=== PATIENT | female | born 1980 | race Caucasian/White ===

== ENCOUNTER 2024-11-17 11:23 | Emergency (ER) | payer OTHER, SELFPAY ==
--- OUTSIDE RECORDS SUMMARY | 2024-11-17 11:25 | XMS_ITS | Clinical Summary ---
Author Organization [facility] Address [address] [place] [address] Care Team Providers Care Automatic Riveting Machine Operator Name Role Phone Edi Leal M.D. Primary Care P citlaly Source Comments Patient records contain information from all sites at [facility]. For routine questions regarding patient records, call [phone] during business hours, M-F 8:00 AM - 5:00 PM Central Time. Record requests for emergency care only can be directed to [phone] at any time.[facility] Allergies No known active allergies Medications * This document contains information received from the source organization and may not represent a complete record from that organization. MULTIVITAMIN ORAL Take 1 tablet by mouth daily. Active B complex-vitamins (BALANCE B-50) tablet Take 1 tablet by mouth daily. Active azithromycin (Zithromax) 500 mg tabletIndication s:Bronchitis Take 1 tablet (500 mg total) by mouth daily. 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 Migraine Headache Variant 10/08/2017 Aneurysm Abdominal Aortic Family History 018 Melanoma Family History 10/08/2017 Resolved Problems Problem Noted Date Diagnosed Date Resolved Date Overweight Body Mass Index 25-29.9 Adult 10/08/2017 10/05/2021 Immunizations Immunization Administration Dates Next Due Influenza TIV (IM) 03/26/2017 Influenza, Injectable, Quadrivalent 03/18/2019,1 Influenza, Unspecified 03/16/2015 SARS-COV-2 (COVID-19) - PFIZ ER (Discontinued)(12 years or older) 03/23/2021,06/07/2020,05/17/2020 influenza vaccine quad (FLUZONE/FLUARIX) (6 months and older)(PF) 03/10/2023,03/09/2021,03/26/2020,2018,03/26/2017,03/16/2016,02/18/2015,1 Family History Medical History Relation Name Comments AA - Aortic aneurysm Father age 45- surgery Hypertension Father Melanoma Father Gout Maternal Grandfather Vitiligo Maternal Grandmother Hypertension Mother Heart failure Paternal Grandmother Other Paternal Grandmother post po alexis Relation Name Status Comments Father Maternal Grandfather Alive Maternal Grandmother Alive Mother Paternal Grandfather Alive Paternal Grandmother (Age 87) Sister Alive Social History Tobacco Use Types Packs/Day Years Used Date Smoking Tobacco: Never Smokeless Tobacco: Never Alcohol Use Standard Drinks/Week Comments Yes 0 (1 standard drink = 0.6 oz pur e alcohol) Social [email or web address] Utilities Answer Date Recorded In the past 12 months has e [employer], gas, oil, or water [employer] threatened to shut off services in your home? No 06/24/2024 Humiliation, Afraid, Rape, and Kick questionnair e Answer Date Recorded Within the last year, have y ou been afraid of your partner or ex-partner? No 07/11/2021 Within the last year, have y ou been humiliated or emotionally abused in other ways by your partner or ex-partner? No Within the last year, have y ou been kicked, hit, slapped, or otherwise physically hurt by your partner or ex-partner? No 07/11/2021 Within the last year, have y ou been raped or forced to have any kind of sexual activity by your partner or ex-partner? No 07/11/2021 Hunger Vital Sign Answer Date Recorded Within the past 12 months, y ou worried that your food would run out before you got the money to buy more. Never true 06/24/19 25 Within the past 12 months, t he food you bought just didn't last and you didn't have money to get more. Never true 06/24/2024 PRAPARE - Transportation Answer Date Re corded In the past 12 months, has l ack of transportation kept you from medical appointments or from getting medications? No 08/2024 In the past 12 months, has l ack of transportation kept you from meetings, work, or from getting things needed for daily living? No 06/24/2024 Housing Stability Answer Date Recorded What is your living situation today? I have a [facility] place to live 06/24/2024 Education Answer Date Recorded What is the highest level of school you have completed or the highest degree you have received? 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 Not on file Not on file Last Filed Vital Signs Vital Sign Reading Time Taken Comments Blood Pressure 110/68 10/06/2021 1:36 PM CDT Pulse 60 10/05/2021 1:04 PM CDT Temperature 36.7 C (98.1 F) 07/07/2021 9:10 AM EXPRESS CLERK Respiratory Rate 18 07/07/2021 9:10 AM EXPRESS CLERK Oxygen Saturation - - Inhaled Oxygen Concentration - - Weight 74.5 kg (164 lb 3.9 oz) 10/06/2021 1:36 P M CDT Height 163.5 cm (5' 4.37) 04/14/2019 9:54 AM CS T Body Mass Index 27.87 04/14/2019 9:54 AM EXPRESS CLERK Plan of Treatment Upcoming Encounters Date Type Department Care Team (Late st Contact Info) Description 11/24/2024 1:45 PM CDT Office Visit Department of Obstetrics and Gynecology in [place], [place] [address] [phone] Karl Monae M.D. [address] [address] Discharge Disposition: Home or Self Care Health Maintenance Due Date Last Done Comments HIV Screening 1981 Hepatitis C Screening 1981 DTaP,Tdap,and Td Vaccines (1 - Tdap) 2000 Hepatitis B Vaccines (1 of 3 - 19+ 3-dose series) 2000 Mammogram 01/16/2023 01/16/2022 COVID-19 Vaccine (4 - season) 2024 03/23/2021, 06/07/2020, 05/17/2020 Influenza Vaccine (#1) 2024 , 03/09/2021, 03/26/2020, Additional history exists Cervical/Vaginal Cancer Screening 04/14/2024 04/14/2019, 04/14/2019, 12/14/2016, Additional history exists Depression Screening (Annual PHQ-2) 05/21/2024 Lipid (Cholesterol) Screening 09/06/2028 09/07/2023, 04/25/2019 HPV Vaccines Aged Out No longer eligi ble based on patient's age to complete this topic IPV Vaccines Aged Out No longer eligi ble based on patient's age to complete this topic Pneumococcal vaccine (0-49 years) Aged Out No longer eligible based on patient's age to complete this topic Procedures Procedure Name Priority Date/Time Associated Diagnosis Comments BI BREAST SCREENING BILATERAL WITH TOMOSYNTHESIS RAD - Routine (most inpatients and all outpatients) 01/16/2022 9:39 AM CDT Screening Mammogram Breast Cancer LIPID PANEL, S Routine 04/25/2019 10:04 AM EXPRESS CLERK General Medical Examination Adult THINPREP SCREEN HPV REFLEX Routine 04/14/2019 10:37 AM EXPRESS CLERK Bleeding Dysfunctional Uterine Gynecological Examination Normal from Last 3 Months or Most Recently Relevant to Health Maintenance Results * BI Breast Screening Bilateral with Tomosynthesis (01/16/2022 9:39 AM CDT) Anatomical Region Laterality Modality Breast, Breast Imaging RST L OS, Breast Imaging ARZ LOS, Breast Imaging FLA LOS Bilateral Mammography 01/16/2022 10:4 4 AM CDT Impressions 01/16/2022 10:45 AM CDT Negative. RECOMMENDATION: Annual Screening Mammogram ASSESSMENT: BI-RADS: 1: Negative. Narrative 01/16/2022 10:45 AM CDT EXAM: BI BREAST SCREENING BILATERAL WITH TOMOSYNTHESIS Current study was evaluated with a Computer Aided Detection (CAD) system. INDICATION: Screening mammogram. COMPARISON: None, this is a baseline screening exam. DENSITY: d. The breast(s) are extremely dense, which lowers the sensitivity of mammography. FINDINGS: No mammographic findings of malignancy. Procedure Note Kobi Mattson M.D. - 01/16/2022 EXAM: BI BREAST SCREENING BILATERAL WITH TOMOSYNTHESIS Current study was evaluated with a Computer Aided Detection (CAD) system. INDICATION: Screening mammogram. COMPARISON: None, this is a baseline screening exam. DENSITY: d. The breast(s) are extremely dense, which lowers thesensitivity of mammography. FINDINGS: No mammographic findings of malignancy. IMPRESSION: Negative. RECOMMENDATION: Annual Screening Mammogram ASSESSMENT: BI-RADS: 1: Negative. Edi Faulkner M.D. [facility] BI PROCEDUR ES Final Result * (ABNORMAL) Lipid Panel (04/25/2019 10:04 AM EXPRESS CLERK) Cholesterol, Total 193 mg/dL 2018 11:40 AM EXPRESS CLERK OWAT Comment: ----REFERENCE VALUE---- Desirable: < 200 Borderline high: 200 - 239 High: > or = 240 Triglycerides 33 mg/dL 04/25/2019 11:40 AM EXPRESS CLERK OWAT Comment: ----REFERENCE VALUE---- Normal: <150 Borderline high: 150-199 High: 200-499 Very high: > or =500 Cholesterol, HDL, S 49(L) >=50 mg/dL 04/25/2019 11:40 AM EXPRESS CLERK OWAT Calculated LDL 137(H) mg/dL 04/25/2019 11:40 AM EXPRESS CLERK OWAT Comment: ----REFERENCE VALUE---- Desirable: <100 Above Desirable: 100-129 Borderline high: 130-159 High: 160-189 Very high: > or =190 Cholesterol, Non-HDL, Calculated 144 mg/dL 04/25/2019 11:40 AM EXPRESS CLERK OWAT Comment: ----REFERENCE VALUE---- Desirable: <130 Above Desirable: 130-159 Borderline high: 160-189 High: 190-219 Very high: > or =220 Blood (Blood, Venous) 04/25/2019 10:04 AM EXPRESS CLERK 04/25/2019 10:29 AM EXPRESS CLERK Matthew Bernard M.D. LAB BLOOD ADD-ON Final Result [facility] [address] [place] [address], [facility] OWAT [facility] [place] [address] [place] [address] * ThinPrep Screen HPV Reflex (04/14/2019 10:37 AM EXPRESS CLERK) 04/22/2019 7:43 AM EXPRESS CLERK [facility] Report electronically signed by AUSTIN Costello(ASCP) I verify that I have examined all relevant slides/materials for the specimen(s) and rendered or confirmed the diagnosis. 04/22/2019 7:43 AM EXPRESS CLERK [facility] Gross Description Received specimen in a ThinPrep vial. 04/22/2019 7:43 AM EXPRESS CLERK [facility] Pap Test Source Cervical/Endocervi helen 04/22/2019 7:43 AM EXPRESS CLERK [facility] Clinical History Irregular cycles 7:43 AM EXPRESS CLERK [facility] Menstrual Status(LMP, PM, ) Irregular cycles 04/22/2019 7:43 AM EXPRESS CLERK [facility] Hormone Therapy/Contracep tives None/Not known 04/22/2019 7:43 AM EXPRESS CLERK [facility] Interpretation Cervical/Endocervi helen (ThinPrep): Satisfactory for Evaluation Endocervical/trans formation zone components absent Negative for Intraepithelial Lesion or Malignancy High Risk HPV: Negative Negative for High Risk HPV by nucleic acid amplification. The following High Risk HPV types were not detected: 16, 18, 31, 33, 35, 39, 45, 51, 52, 56, 58, 59, 66, and 68. 04/22/2019 7:43 AM EXPRESS CLERK [facility] Varies (Cervix/Endocerv ix) 04/14/2019 10:37 AM EXPRESS CLERK 04/15/2019 8:42 AM EXPRESS CLERK us Matthew Bernard M.D. LAB PAP PATHDX ORDERABLES Jaquelin l Result [facility] [address] [place] [address], [facility] HKCY [facility] [address] [place] [address] from Last 3 Months or Most Recently Relevant to Health Maintenance Care Teams Automatic Riveting Machine Operator Relationship Specialty Start Date End Date Edi Leal M.B.B.S., M.D. [address] [place] [id number] PCP - General 04/21/19
--- OUTSIDE RECORDS SUMMARY | 2024-11-17 11:25 | XMS_ITS | Clinical Summary ---
Author Organization [employer] [facility] Address [facility] [place] [address] Care Team Providers Care Relationship Counselor Name Role Phone Krsy Mendez DO Unavailable [phone] Edi Leal Primary Care Provider Allergies No known active allergies Medications propranolol (INDERAL) 40 mg tablet Take 40 mg by mouth 2 times daily. Takes 20mg BID 0 04/30/2017 Active MULTIVITAMIN ORAL Take by mouth. Active propranolol (INDERAL) 20 mg tablet Take 1 tablet by mouth once daily. 90 tablet 3 08/02/2018 11:48 AM CDT 11/02/2017 Active propranolol (INDERAL) 20 mg tablet Take 1 tablet (20 mg total) by mouth daily. Due for follow-up 30 tablet 11/27/2018 12:13 PM CDT 11/27/2018 Active methylPREDNISol one (MEDROL DOSEPAK) 4 mg tabletIndicatio ns:Sciatica, left side Take by mouth as directed on package. 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 20 Tablet 07/08/2021 3:41 PM FOUNTAIN VENDING MECHANIC 07/08/2021 Active COVID-19 antigen test (Flowflex Covid-19 AG Home Test) kit Use as directed on packaging. 8 Kit 07/08/2021 Active azithromycin (ZITHROMAX) 500 mg tablet Take 1 tablet (500 mg total) by mouth daily. 5 Tablet 10/05/2021 2:38 PM CDT 08/23/2021 Active fluconazole (DIFLUCAN) 150 mg tablet Take 1 tablet (150 mg total) by mouth See Admin Instructions. Take one tab now. Repeat in 7 days if symptoms persist. 2 Tablet 10/05/2021 2:38 PM CDT 09/14/2021 Active azithromycin (ZITHROMAX) 250 mg tablet Take 2 tablets (500mg) by mouth daily for 5 days. 10 Tablet 04/12/2022 12:12 PM FOUNTAIN VENDING MECHANIC 04/12/2022 Active phentermine (IONAMIN) 15 mg capsuleIndicati ons:Overweight Take 1 Capsule (15 mg) by mouth once daily before a meal. 30 Capsule 1 08/24/2023 Active Active Problems No known active problems Resolved Problems Problem Noted Date Diagnosed Date Resolved Date Active labor 09/14/2014 05/26/2015 MPP antepartal testing 08/31/201405/26 Overview (09/09/2014): NEXT VISIT ALERTS: [facility] TESTING ONLY Appointments thru 09/16/14 PRIMARY DIAGNOSIS: TWINS - Di/Di TESTING PLANS: WEEKLY BPP/NST - is she getting twice weekly due to cholestasis? LAST GROWTH: 08/26/14 EFW A: 1789, B: 2552 grams, percentile: A: 42, B: 90. - repeat in 4-6 weeks - is this still needed? If so, please schedule. PRIMARY PHYSICIAN: Dr. Reza SPECIALISTS: PLAN: C/S 10/06/14 w/ PMD - did this date change due to cholestasis? Disparate growth in twin gestation 07/29/2014 05/26/2015 Overview (07/29/2014): EFW A: 1025, B: 1321 grams, percentile: A: 26, B: 65. Maximum vertical fluid pocket: A: 5.90, B: 6.68 cm. Twin A: Asymmetric growth indices @ the mean for 26-6/7 weeks/AC @ 30% The umbilical artery Doppler studies were normal. Twin B: Symmetric growth indices @ the mean for 29-0/7 weeks/AC @ 80% The umbilical artery Doppler studies were normal. Multiple with malp resentation with problem in third trimester 07/29/201410/2015 Overview (07/29/2014): presentation is A: Breech, maternal right, B: Variable, maternal left. History of delivery, currently 07/29/2014 05/26/2015 , high-risk, assist ed reproductive technology 07/29/2014 05/26/2015 History of section complicating 06/18/2014 05/26/2015 Twin gestation, dichorionic diamniotic 03/09/2014 05/26/2015 Overview (09/13/2014): 1. 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 REZA FOR DELIVERY EVEN IF NOT [employer] [place] 2. Di/di twin - normal first tri screen; level II sono 20 wks normal; level II sono 07/29/14- disparate growth- A: 30%/ B-80% - repeat level II sono mid August - weekly BPP/NST's at 32 weeks 3. Previous C/S for twins 2011- repeat C/S at 37 weeks on Sunday09/28/[address] Reza 4. Cholestasis- elevated LFT's and bile acids. On ursodiol and in twice weekly testing. Supervision of other normal 02/19/2014 03/09/2014 Overview (02/23/2014): Flu shot 02/19/2014 Ppd positive IUI Immunizations Immunization Administration Dates Next Due Influenza Virus, Unspecified 03/18/2019,03/26/20 17,03/16/2016,03/16/2015 Influenza, IIV3 (Age >=3 years) 03/26/2017 Influenza, IIV4 03/10/2023,,03/26/2020,03/18/2019, 03/26/2017,03/16/2016,02/18/2015,02/19/2014 Family History Medical History Relation Name Comments Hypertension Father Hypertension Mother Relation Name Status Comments Father Alive Maternal Grandfather Alive Maternal Grandmother Alive Mother Alive Paternal Grandfather Alive Paternal Grandmother Sister Alive Social History Tobacco Use Types Packs/Day Years Used Date Smoking Tobacco: Never Smokeless Tobacco: Never Alcohol Use Standard Drinks/Week Comments No 0 (1 standard drink = 0.6 oz pur e alcohol) Social Connections Answer Date Recorded Frequency of Communication with Friends and Fami ly Not on file 06/01/2023 Comments No Sex and Gender Information Value Date Recorded Sex Assigned at Not on file Legal Sex Female 5:11 PM CDT Gender Identity Not on file Sexual Orientation Not on file 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 file Not on file Obstetrics History Para Term AB IAB SAB Ectopic Multiple Livin g Live Births 2 2 0 2 0 0 0 0 2 4 4 Date Outcome GA Total Labor Labor/2nd/3rd Weight Sex Type Anes PTL Chelle A1 A5 Name Clin 2011 36w 0d 2.72 kg (6 lb) F CS-Un spec Livin g Sugey Delivery Location:[place] Comments:breech in lab or 2011 36w 0d 2.72 kg (6 lb) F CS-Un spec Livin g Tess Delivery Location:[facility] Comments:breech; PTL a t 34 wks 2014 35w 0d 2.22 kg (4 lb 14.3 oz) F CS-LT ranv Livin g 6 7 [facility] Delivery Location:[facility] Comments:breech; PTL 2014 35w 0d 2.83 kg (6 lb 3.8 oz) M CS-LT ranv Livin g 8 8 [facility] Delivery Location:[facility] Comments:Breech; PTL Last Filed Vital Signs Vital Sign Reading Time Taken Comments Blood Pressure 125/81 07/16/2023 12:45 PM FOUNTAIN VENDING MECHANIC Pulse 67 07/16/2023 12:45 PM FOUNTAIN VENDING MECHANIC Temperature 36.3 C (97.4 F) 10/17/2017 10:02 AM CDT Respiratory Rate 18 10/17/2017 10:02 AM CDT Oxygen Saturation 99% 10/17/2017 11:55 AM CDT Inhaled Oxygen Concentration - - Weight 75.1 kg (165 lb 9.1 oz) 07/16/2023 12:45 PM FOUNTAIN VENDING MECHANIC Height 165.1 cm (5' 5) 06/01/2023 8:56 AM FOUNTAIN VENDING MECHANIC Body Mass Index 27.55 06/01/2023 8:56 AM FOUNTAIN VENDING MECHANIC Plan of Treatment Health Maintenance Due Date Last Done Comments Tdap 1992 Hepatitis C screening for age 18-79 1999 Hepatitis B series for 19+ (1 of 3 - 19+ 3-dose series) 2000 Tetanus booster 2001 Depression screening for age 12+ 06/22/2016 06/22/2015 Pap test for age 21-65 12/14/2017 7, 12/14/2016, 05/26/2015, Additional history exists COVID-19 vaccine series ( season) 2024 03/23/2021, 06/07/2020, 05/17/2020 BMI (ht and wt on same day) for age 18+ 06/01/2024 06/01/2023, 04/30/2017, 01/31/2016, Additional history exists Influenza Vaccine (Season Ended) 2025 03/10/2023, 03/09/2021, 03/26/2020, Additional history exists HIV for age 15-65 Completed 02/19/2014 Pneumococcal series for age 6-49 Aged Out No longer eligible based on patient's age to complete this topic Procedures Procedure Name Priority Date/Time Associated Diagnosis Comments DIRECTOR FOOD SAFETY THIN PREP PAP SCREEN IMAGED Routine 12/14/2016 11:57 AM CDT ANTI HIV 1/2 Routine 02/19/2014 9:05 AM CDT Supervision of other normal (HC) from Last 3 Months or Most Recently Relevant to Health Maintenance Results * DIRECTOR FOOD SAFETY THIN PREP PAP SCREEN IMAGED (12/14/2016 11:57 AM CDT) Case Report Gynecologic Cytology Report Case: [id number] Authorizing Provider: Damari Bañuelos MD Collected: 12/14/2016 1157 First Screen: Kvng Ruiz Received: 12/16/2016 1158 Rescreen: Ca Chua Specimen: DIRECTOR FOOD SAFETY ThinPrep Vial Screening, Cervical/Vaginal 12/25/2016 12:55 PM CDT [facility] INTERPRETATION/ RESULT NEGATIVE FOR INTRAEPITHELIAL LESION OR MALIGNANCY (NIL) (none) 12/25/2016 12:55 PM CDT [facility]AL LAB[facility] at 1255 CDT SPECIMEN ADEQUACY Satisfactory for evaluation Endocervical component present 12/25/2016 12:55 PM CDT [facility] HPV REQUEST HPV and PAP 12/25/2016 12:55 PM CDT [facility] ENTRAL LAB[facility] Date of LMP 11/23/2016 12/25/2016 12:55 PM CDT [facility] [employer] LABORATORY-C ENTRAL LABORATORY Last Pap Date 12/25/2016 12:55 PM CDT [facility] [employer] LAB[facility]ATORY ENTRAL LABORATORY Comment:2014 Last Pap Result 12:55 PM CDT [facility] [employer] [facility] ENTRAL LABORATORY Comment:insufficient Automated Review Successful 12/25/2016 12:55 PM CDT [facility] [employer] [facility]ORY[facility] ENTRAL LABORATORY Comment:Specimen processed s uccessfully by automated computer programmer chief device, ThinPrep Imaging System, [employer] ANCILLARY TESTING DIRECTOR FOOD SAFETY HPV Ordered, Please see separate report 12/25/2016 12:55 PM CDT [facility] [employer] [facility] ENTRAL LABORATORY Note The pap test is a screening technique, not a diagnostic procedure. It is used primarily to screen for squamous cancers and precursor lesions. Published studies have shown that it is subject to both false negative and false positive results. The pap test should not be used as the sole means to diagnose or exclude pre-malignant and malignant lesions. Interpreted at [facility] ([facility], [facility], [facility], [facility], [facility], [facility], [facility]) 12/25/2016 12:55 PM CDT [facility] [employer] [facility] Other (Cervical/Vagina l) 12/14/2016 11:57 AM CDT 12/16/2016 11:58 AM CDT Damari Bañuelos MD PATHOLOGY/CYTOLOGY Final Result [facility] [address] [place] [address], * ANTI HIV 1/2 (02/19/2014 9:05 AM CDT) HIV-1/HIV-2 ANTIBODY Non-Reacti ve Non-Reacti ve 02/19/2014 4:27 PM CDT [facility] TR[facility] LABORATORY Blood specimen (specimen) BLOOD SPECIMEN / Unknown Venipuncture / Unknown 02/19/2014 9:05 AM CDT 02/19/2014 9:05 AM CDT Narrative [facility] - 02/19/2014 4:27 PM CDT HIV-1 p24 and HIV-1/HIV-2 Ab not detected us Ezequiel Herrera MD SEND OUTS Final Result [facility] [address] [place] [address], from Last 3 Months or Most Recently Relevant to Health Maintenance Insurance INDIVIDUAL [employer] FAMILY PLANS Advance Directives * Full Code (Latest Code Status on File) Date Activated Date Inactivated Comments 09/14/2014 4:40 AM 09/17/2014 1:09 PM * Full Code Date Activated Date Inactivated Comments 09/14/2014 2:16 AM 09/14/2014 4:40 AM * Full Code Date Activated Date Inactivated Comments 09/13/2014 11:36 PM 09/14/2014 2:16 AM * Full Code Date Activated Date Inactivated Comments 09/06/2014 11:13 AM 09/10/2014 2:40 AM * Full Code Date Activated Date Inactivated Comments 09/06/2014 8:41 AM 09/06/2014 11:13 AM Care Teams Relationship Counselor Relationship Specialty Start Date End Date Edi Leal MBBS [address] [place] [address] PCP - General Family Practice 04/24/20 Krys Mendez DO [address] [place] [address] Internal Medicine 04/30/17
[2024-11-17 11:36] VITALS: BP 137/79; PULSE 63; RESP 20; TEMP 36.5; O2SAT 99; BMI 25.5
--- NOTE | 2024-11-17 11:43 | ED_ITS ---
HPI - Abdominal Pain General Time Seen by Provider: 11:43 Date Seen: 11/17/24 Chief Complaint: Abdominal Pain Stated Complaint: Abdominal pain Time Seen by Provider: 11/17/24 11:39 Source: patient and RN notes reviewed Mode of arrival: ambulatory Limitations: no limitations History of Present Illness HPI narrative: This 44-year-old female is coming into the ER with increasing pelvic pain, right low back pain. 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 She had had a UTI a few months back and was sensitive to doxycycline on culture. She started doxycycline but is now starting to feel right low back pain, nausea, bloated, increased pelvic pain. She has had 2 C sections with 2 sets of twins. Her has had a vasectomy. Her periods are still regular but they are becoming heavier, have your bleeding. She has not had any fevers but has had some chills. She has not noted any changes in bowel habits. She has had no other surgeries. She has noted sediment in her urine before but no documented history of kidney stones. She is coming in as she is just feeling worse, worried about things like ascending infection with pyelonephritis, potential ovarian cyst. We did discuss doing test as there can be failure rates with vasectomy. She was trying to work, just does not feel well enough to do so. She did come into the ER. She has been using ibuprofen. She declines any need for pain management at this time. She is , stable monogamous relationship. No vaginal discharge noted. Related Data Previous Rx's ?Medication ?Instructions ?Recorded doxycycline monohydrate 100 mg 100 mg PO BID #8 caps 0 11/17/24 capsule phenazopyridine 200 mg tablet 200 mg PO TID PRN pain # 10 tabs 11/17/24 (Pyridium) Allergies Allergy/AdvReac Type Severity Reaction Status Date / Time Opioids - Morphine Analogues Allergy Unknown Verified 11/17/24 11:40 Review of Systems Status of ROS Reports: 6 or more systems reviewed and unremarkable except as noted in History and below PFSH PFS Social History Smoking Status: Never smoker How often do you have a drink containing alcohol: never How often do you have six or more drinks on one occasion: Never AUDIT-C Alcohol total score: 0 Non-prescribed substance use: denies use Exam Const: Vital Signs, click to edit/add: Vital Signs - 24 hr 11/17/24 11:36 Temperature 97.7 F Pulse Rate [Pulse Oximeter] 63 Respiratory Rate 20 Blood Pressure [Ri ght Upper Arm] 137/79 Pulse Oximetry 99 Oxygen Delivery Me thod Room Air This 44-year-old female is alert, interactive, no apparent distress. She is very pleasant and well kept. Sclera clear, conjugate gaze. She is able to speak in complete sentences, speech is normal. Lungs are clear, good air entry, no tachypnea accessory muscle use. Neck slender. CV regular rate and rhythm, no murmur, normal S1-S2, no S3-S4. She has no CVA tenderness. She points to pain in her right low back area but there is nothing reproducible at this time. Abdomen is with some mild generalized discomfort but no rebound or guarding, no appreciable organomegaly. Pelvic exam deferred at this point. Documenting provider has reviewed patient's vital signs: yes Course Course ED Course: We will start with noncontrast CT imaging to definitely rule out kidney stone pathology. This may remain not see any ascending urinary infection without contrast. She understands we may need to do a subsequent exam with contrast if needed. We may need to consider doing pelvic ultrasonography. Will get baseline labs. She will let us know if she changes her mind on pain or nausea management. Reevaluation(s) Time of Reevaluation #1: 12:51 Reevaluation #1: Have reviewed patient's CT and labs with her. She is actually feeling more pelvic discomfort, was going to request the Toradol. She believes her last UTI was mycoplasma hominis. It was sensitive to doxycycline. Did discuss that mycoplasma species are potential etiologies in pelvic inflammatory disease. She in I discussed further imaging with pelvic ultrasound which she would like to do. Will order 15 mg IV Toradol. We will be culturing her urine. She has been on 5 days of doxycycline which is typical treatment for PID minus Rocephin. At this time, will look at pelvic ultrasonography to see if there is any ab normality there, CT imaging did not show any pathology but this was a noncontrast CT. Time of Reevaluation #2: 13:05 Reevaluation #2: Patient was incorrect in the organism, was ureaplasma parvum. This effectively can cause urethritis, vaginitis, cervicitis, PID. Time of Reevaluation #3: 13:56 Reevaluation #3: Did do the pelvic exam. External genitalia normal. Vaginal mucosa is normal, mild amount of nonodorous normal appearing vaginal discharge. Cervix appeared normal. Endocervical specimens were obtained for GC and chlamydia as well as mycoplasma/ureaplasma. Patient had some discomfort with the pelvic exam but not excessive. Awaiting pelvic ultrasound results. Additional Reevaluation(s): 2:10 p.m.: Did review ultrasound report with patient. She probably has an endocervical polyp, reviewed with her that I did not see this but there was some discharge up along the cervix and was just collecting swabs. We did discuss that this certainly sometimes can just be removed in twisted off by OB Gyne. She will follow-up with OB Gyne. We will do Rocephin. She needs more tablets to completed 2 week course of doxycycline. We did discuss that the Ureaplasma can cause urethritis. Will also send in peridium for symptom control. She declines any medications such as Toradol, declined anything stronger. We will contact her with pending test results, of the Ureaplasma and mycoplasma are send outs, she understands it could be 5-7 days before we have these back. Consultations Consultation #1: Did converse with Dr. Bañuelos regarding this patient. She does think we should do these cervical cultures, consider PID. She admittedly is not excessively familiar with Ureaplasma being a urinary pathogen. Did review with her that urethritis can be a possibility. Time: 13:19 Vital Signs Vital signs: Initial Vital Signs Temperature 97.7 F 11/17/24 11:36 Temperature Source Oral 11/17/24 11:36 Pulse Rate 63 11/17/24 11:36 Respiratory Rate 20 11/17/24 11:36 Blood Pressure 137/79 11/17/24 11:36 Blood Pressure Mean 98 11/17/24 11:36 Blood Pressure Position Sitting 11/17/24 11:36 Pulse Oximetry 99 11/17/24 11:36 Oxygen Delivery Method Room Air 11/17/24 11:36 Vital Signs Temperature 97.7 F 11/17/24 11:36 Pulse Rate 63 11/17/24 11:36 Respiratory Rate 20 11/17/24 11:36 Blood Pressure 137/79 11/17/24 11:36 Pulse Oximetry 99 11/17/24 11:36 Oxygen Delivery Method Room Air 11/17/24 11:36 Temperature 97.7 F 11/17/24 11:36 Pulse Rate 63 11/17/24 11:36 Respiratory Rate 20 11/17/24 11:36 Blood Pressure 137/79 11/17/24 11:36 Pulse Oximetry 99 11/17/24 11:36 Oxygen Delivery Method Room Air 11/17/24 11:36 Medications Administered Medications: Discontinued Medications Generic Name Dose Route Start Last Admin Trade Name Julienne PRN Reason Stop Dose Admin Ceftriaxone Sodium 500 mg/ 100 mls @ 200 mls/hr 11/17/24 14:11 11/17/24 15:00 Sodium Chloride IVPB 11/17/24 14:12 Infused ONCE ONE Infusion Ketorolac Tromethamine 15 mg 11/17/24 12:56 11/17/24 13:32 Ketorolac 15 Mg/Ml Inj IVP 11/17/24 12:57 15 mg ONCE ONE Administration MDM - Abdominal Pain Lab Data Attestation: I reviewed the patient's lab results. Labs: Lab Results 11/17/24 11/17/24 11/17/24 Range/Units 11:45 12:01 12:05 WBC 7.65 (4.50-11.00) K/uL RBC 4.35 (4.00-5.20) m/uL Hgb 12.3 (12.0-16.0) gm/dL Hct 37.2 (33.0-51.0) % MCV 86 (80-100) fL MCH 28 (26-34) pg MCHC 33 (32-36) gm/dL RDW Coeff of Jaiden 12.7 (11.5-15.5) % Plt Count 364 (140-440) K/uL Neut % (Auto) 58.9 (42.0-72.0) % Lymph % (Auto) 28.6 (20-44) % [place] % (Auto) 6.5 (0.0-11.0) % Eos % (Auto) 5.6 (0.0-7.0) % Baso % (Auto) 0.4 (0.0-3.0) % Neut # (Auto) 4.50 (1.7-7.0) K/uL Lymph # (Auto) 2.19 (0.90-2.90) K/uL [place] # (Auto) 0.50 (0.00-0.90) K/UL Eos # (Auto) 0.43 (0.00-0.50) K/uL Baso # (Auto) 0.03 (0.00-0.30) K/uL Abs Immat Gran (auto) 0.00 (0.00-0.30) K/uL Imm/Tot Granulo (auto) 0.0 % Sodium 137 (135-149) mmol/L Potassium 3.8 (3.6-5.1) mmol/L Chloride 102 (96-114) mmol/L Carbon Dioxide 28 (20-32) mmol/L Anion Gap 7 (7-15) mEq/L BUN 21 (5-24) mg/dL Creatinine 0.8 (0.5-1.5) mg/dL Estimated Creat Clear 81.59 Estimated GFR 94 ml/min Glucose 94 (60-115) mg/dL Lactate 0.7 (0.5-1.9) mmol/L Calcium 9.0 (8.4-10.6) mg/dL Total Bilirubin 0.4 (0.1-1.5) mg/dL AST 28 (12-35) U/L ALT 19 (4-35) U/L Alkaline Phosphatase 45 (40-150) U/L C-Reactive Protein < 0.5 L (0.5-1.0) mg/dL Total Protein 7.4 (6.0-8.3) g/dL Albumin 4.2 (3.3-5.0) g/dL Urine Color Yellow (Yellow) Urine Appearance Clear (Clear) Urine pH 5.0 (5.0-8.5) Ur Specific Drain 1.015 (1.000-1.030) Urine Protein Negative (Negative) Urine Glucose (UA) Negative (Negative) Urine Ketones Negative (Negative) Urine Blood Trace-lysed A (Negative) Urine Nitrite Negative (Negative) Urine Bilirubin Negative (Negative) Urine Urobilinogen 0.2 (0.2-1.0) Ur Leukocyte Esterase Negative (Negative) Urine RBC 0-2 (0-2) Urine WBC 0-2 (0-5) Ur Squamous Epith Cells Few (None-Few) Urine Bacteria None (None) Urine HCG, Qual Negative (Negative) C.trachomatis Ampl DNA (No Detected) N.gonorrhoeae Ampl DNA (No Detected) Lab Acknowledgement Test Added 11/17/24 Range/Units 13:55 WBC (4.50-11.00) K/uL RBC (4.00-5.20) m/uL Hgb (12.0-16.0) gm/dL Hct (33.0-51.0) % MCV (80-100) fL MCH (26-34) pg MCHC (32-36) gm/dL RDW Coeff of [place] (11.5-15.5) % Plt Count (140-440) K/uL Neut % (Auto) (42.0-72.0) % Lymph % (Auto) (20-44) % [place] % (Auto) (0.0-11.0) % Eos % (Auto) (0.0-7.0) % Baso % (Auto) (0.0-3.0) % Neut # (Auto) (1.7-7.0) K/uL Lymph # (Auto) (0.90-2.90) K/uL [place] # (Auto) (0.00-0.90) K/UL Eos # (Auto) (0.00-0.50) K/uL Baso # (Auto) (0.00-0.30) K/uL Abs Immat Gran (auto) (0.00-0.30) K/uL Imm/Tot Granulo (auto) % Sodium (135-149) mmol/L Potassium (3.6-5.1) mmol/L Chloride (96-114) mmol/L Carbon Dioxide (20-32) mmol/L Anion Gap (7-15) mEq/L BUN (5-24) mg/dL Creatinine (0.5-1.5) mg/dL Estimated Creat Clear Estimated GFR ml/min Glucose (60-115) mg/dL Lactate (0.5-1.9) mmol/L Calcium (8.4-10.6) mg/dL Total Bilirubin (0.1-1.5) mg/dL AST (12-35) U/L ALT (4-35) U/L Alkaline Phosphatase (40-150) U/L C-Reactive Protein (0.5-1.0) mg/dL Total Protein (6.0-8.3) g/dL Albumin (3.3-5.0) g/dL Urine Color (Yellow) Urine Appearance (Clear) Urine pH (5.0-8.5) Ur Specific Drain (1.000-1.030) Urine Protein (Negative) Urine Glucose (UA) (Negative) Urine Ketones (Negative) Urine Blood (Negative) Urine Nitrite (Negative) Urine Bilirubin (Negative) Urine Urobilinogen (0.2-1.0) Ur Leukocyte Esterase (Negative) Urine RBC (0-2) Urine WBC (0-5) Ur Squamous Epith Cells (None-Few) Urine Bacteria (None) Urine HCG, Qual (Negative) C.trachomatis Ampl DNA NOT DETECTED (No Detected) N.gonorrhoeae Ampl DNA NOT DETECTED (No Detected) Lab Acknowledgement Imaging Data CT scan - abdomen: Attestation: I have reviewed the pertinent imaging results. Radiologist's impression: Patient: TRENT ANNE Facility:?[facility] Patient ID:?[id number] Site Patient ID:?[id number]. Site :?[id number] Study:?CT-Abdomen/Pelvis w/o-11/17/2024 12:11:11 PM Ordering Physician:Gelacio Curry Final Report: Indication: Dysuria, Right LBP r/o stones Technique: Noncontrast CT of the abdomen and pelvis was obtained. Please note that all CT scans at this facility use dose modulation, iterative reconstruction, and/or weight-based dosing when appropriate to reduce radiation dose to as low as reasonably achievable. Comparison: None. Findings: Lower thorax: Normal. Liver and biliary tree: Normal noncontrast appearance. Gallbladder: Normal. Spleen: Normal noncontrast appearance. Pancreas: Normal noncontrast appearance. Adrenal glands: Normal noncontrast appearance. Kidneys and ureters: No hydronephrosis or obstructing renal calculi. Gastrointestinal tract: Moderate stool burden is seen throughout the colon. No evidence of acute appendicitis. No evidence of bowel obstruction. Peritoneal cavity: Normal. Bladder: Normal. Pelvic organs: Normal. Vasculature: Normal noncontrast appearance. Lymph nodes: Normal. Abdominal wall: Normal. Musculoskeletal: Normal. Impression: 1. No hydronephrosis or obstructing renal calculi. 2. Moderate stool burden is seen throughout the colon. Please note that all CT scans at this facility use dose modulation, iterative reconstruction, and/or weight-based dosing when appropriate to reduce radiation dose to as low as reasonably achievable. Dictated by Rober Brown MD @ 11/17/2024 12:31:05 PM (Electronic Signature) US pelvis: Attestation: I have reviewed the pertinent imaging results. Radiologist's impression: Patient: TRENT ANNE Facility:?[facility] Patient ID:?[id number] Site Patient ID:?[id number]. Site :?1980 Study:?US-Pelvis Transabdominal and Transvaginal-11/17/2024 1:48:47 PM Ordering Physician:Gelacio Curry Final Report: INDICATION: Pelvic pain. COMPARISON: Same day CT of the abdomen and pelvis. TECHNIQUE: Sonographic evaluation of the pelvis was performed utilizing sears-scale and color/spectral Doppler imaging techniques. Transabdominal images were obtained. Transvaginal images were obtained to improve assessment of the adnexa and endometrium. FINDINGS: The uterus is anteverted and retroflexed. The uterus measures 10.9 x 5.8 x 6.2 centimeters. The endometrial stripe measures 10 mm. Trace fluid within the endometrial cavity at the lower uterine segment and in the cervical canal. There is a 5 x 4 x 3 millimeter polypoid slightly echogenic lesion within the cervical canal. The right ovary measures 3.5 x 1.5 x 2.4 cm. Vascular flow is detected in the right ovary. No suspicious right ovarian mass is identified. The left ovary measures 3.6 x 1.8 x 2.2 cm. Vascular flow is detected in the le ft ovary. No suspicious left ovarian mass is identified. No free fluid is detected in the pelvis. IMPRESSION: 1. Trace fluid within the endometrial cavity at the lower uterine segment and in the cervical canal. 2. There is a 5 millimeter nonspecific polypoid lesion within the cervical canal. Dictated by Getachew Kidd MD @ 11/17/2024 2:00:16 PM (Electronic Signature) Discharge Plan Discharge Clinical Impression: Pelvic pain Patient Disposition: Home, Self-Care Condition: Stable Instructions: Pelvic Pain (ED) Additional Instructions: Complete the doxycycline 14 day course that we discussed. Can use Tylenol, ibuprofen [id number] as needed per bottle directions. Did send in Pyridium to help easy urinary symptoms. Please get scheduled to follow-up with OBGYN. In the meantime, if you are worsening, have increasing pain, develops fevers or chills or vomiting with abdominal pain/pelvic pain, do recommend re- evaluation. Likewise, if you are worsening despite outlined treatment, have new or further concerns, do recommend re-evaluation. Activity Level: Activity as Tolerated Prescriptions: New doxycycline monohydrate 100 mg capsule 100 mg PO BID Qty: 8 0RF phenazopyridine [Pyridium] 200 mg tablet 200 mg PO TID PRN (Reason: pain) Qty: 10 0RF Follow Up/Referrals: Provider,Not a Local [Primary Care Provider, Family Practice] Stand Alone Forms: [employer] Info Instructions
--- NOTE | 2024-11-17 11:56 | CRLHL7_ITS ---
For Patients: As a result of the Century Cures Act, medical imaging exams and procedure reports are released immediately into your electronic medical record. You may view this report before your referring provider. If you have questions, please contact your health care provider. Indication: Dysuria, Right LBP r/o stones Technique: Noncontrast CT of the abdomen and pelvis was obtained. Please note that all CT scans at this facility use dose modulation, iterative reconstruction, and/or weight-based dosing when appropriate to reduce radiation dose to as low as reasonably achievable. Comparison: None. Findings: Lower thorax: Normal. Liver and biliary tree: Normal noncontrast appearance. Gallbladder: Normal. Spleen: Normal noncontrast appearance. Pancreas: Normal noncontrast appearance. Adrenal glands: Normal noncontrast appearance. Kidneys and ureters: No hydronephrosis or obstructing renal calculi. Gastrointestinal tract: Moderate stool burden is seen throughout the colon. No evidence of acute appendicitis. No evidence of bowel obstruction. Peritoneal cavity: Normal. Bladder: Normal. Pelvic organs: Normal. Vasculature: Normal noncontrast appearance. Lymph nodes: Normal. Abdominal wall: Normal. Musculoskeletal: Normal. Impression: 1. No hydronephrosis or obstructing renal calculi. 2. Moderate stool burden is seen throughout the colon. Please note that all CT scans at this facility use dose modulation, iterative reconstruction, and/or weight-based dosing when appropriate to reduce radiation dose to as low as reasonably achievable. Dictated by Rober Brown MD @ 11/17/2024 12:31:05 PM (Electronically Signed)
[2024-11-17 12:11] LABS: Appearance Urine Clear (Clear); Bilirubin Urine Negative (Negative); Blood Urine Trace-lysed (Negative); Color Urine Yellow (Yellow); Glucose Urine Negative (Negative); Ketones Urine Negative (Negative); Specific Gravity Urine 1.015 (1.000-1.030)
[2024-11-17 12:11] LABS: Lactate* 0.7 mmol/L (0.5-1.9)
[2024-11-17 12:12] LABS: Leukocyte Esterase Urine Negative (Negative); Nitrite Urine Negative (Negative); Protein Urine Negative (Negative); RBC Urine 0-2 (0-2); Squamous Epithelial Cell Urine Few (None-Few); Urobilinogen Urine 0.2 (0.2-1.0); WBC Urine 0-2 (0-5)
[2024-11-17 12:16] LABS: Basophils Absolute Auto 0.03 K/uL (0.00-0.30); Basophils Percent Auto 0.4 % (0.0-3.0); Eosinophils Absolute Auto 0.43 K/uL (0.00-0.50); Eosinophils Percent Auto 5.6 % (0.0-7.0); Hematocrit 37.2 % (33.0-51.0); Hemoglobin* 12.3 gm/dL (12.0-16.0); Lymphocytes Absolute Auto 2.19 K/uL (0.90-2.90); Lymphocytes Percent Auto 28.6 % (20-44); Mean Corpuscular HGB Conc 33 gm/dL (32-36); Mean Corpuscular Hemoglobin 28 pg (26-34); Mean Corpuscular Volume 86 fL (80-100); Monocytes Percent Auto 6.5 % (0.0-11.0); Neutrophils Percent Auto 58.9 % (42.0-72.0); Platelet Count* 364 K/uL (140-440); RDW Coefficient of Variation % 12.7 % (11.5-15.5); Red Blood Count 4.35 m/uL (4.00-5.20); White Blood Count* 7.65 K/uL (4.50-11.00)
[2024-11-17 12:18] LABS: Slide Review Reflex No
[2024-11-17 12:24] LABS: Ur HCG Qualitative* Negative (Negative)
[2024-11-17 12:25] LABS: Albumin* 4.2 g/dL (3.3-5.0); Chloride* 102 mmol/L (96-114); Sodium* 137 mmol/L (135-149)
[2024-11-17 12:26] LABS: Potassium* 3.8 mmol/L (3.6-5.1)
[2024-11-17 12:28] LABS: Blood Urea Nitrogen* 21 mg/dL (5-24); Creatinine* 0.8 mg/dL (0.5-1.5); Est. Creatinine Clearance* 81.59; Estimated Glomerular Filt Rate 94 ml/min
[2024-11-17 12:29] LABS: Alanine Aminotransferase* 19 U/L (4-35); Alkaline Phosphatase* 45 U/L (40-150); Anion Gap 7 mEq/L (7-15); Aspartate Amino Transferase* 28 U/L (12-35); Bilirubin Total* 0.4 mg/dL (0.1-1.5); Carbon Dioxide* 28 mmol/L (20-32); Glucose* 94 mg/dL (60-115); Total Protein* 7.4 g/dL (6.0-8.3)
[2024-11-17 12:32] LABS: C Reactive Protein* < 0.5 mg/dL (0.5-1.0)
--- NOTE | 2024-11-17 12:51 | CRLHL7_ITS ---
For Patients: As a result of the Century Cures Act, medical imaging exams and procedure reports are released immediately into your electronic medical record. You may view this report before your referring provider. If you have questions, please contact your health care provider. INDICATION: Pelvic pain. COMPARISON: Same day CT of the abdomen and pelvis. TECHNIQUE: Sonographic evaluation of the pelvis was performed utilizing sears-scale and color/spectral Doppler imaging techniques. Transabdominal images were obtained. Transvaginal images were obtained to improve assessment of the adnexa and endometrium. FINDINGS: The uterus is anteverted and retroflexed. The uterus measures 10.9 x 5.8 x 6.2 centimeters. The endometrial stripe measures 10 mm. Trace fluid within the endometrial cavity at the lower uterine segment and in the cervical canal. There is a 5 x 4 x 3 millimeter polypoid slightly echogenic lesion within the cervical canal. The right ovary measures 3.5 x 1.5 x 2.4 cm. Vascular flow is detected in the right ovary. No suspicious right ovarian mass is identified. The left ovary measures 3.6 x 1.8 x 2.2 cm. Vascular flow is detected in the left ovary. No suspicious left ovarian mass is identified. No free fluid is detected in the pelvis. IMPRESSION: 1. Trace fluid within the endometrial cavity at the lower uterine segment and in the cervical canal. 2. There is a 5 millimeter nonspecific polypoid lesion within the cervical canal. Dictated by Getachew Kidd MD @ 11/17/2024 2:00:16 PM (Electronically Signed)
[2024-11-17] MEDS: KETOROLAC 15 MG/ML inj IVP (13:32)
[2024-11-17] MEDS: cefTRIAXone 500 MG in 0.9 % SODIUM CHLORIDE Mini-bag 100 ML 200 MG IVPB (14:21)
[2024-11-17 15:52] LABS: Chlamydia DNA Amplified* NOT DETECTED (No Detected); GC DNA Amplified* NOT DETECTED (No Detected)
== END 2024-11-17 15:01 | disposition home or self-care (01) ==
PROVIDERS: Emergency Provider Family Medicine
DX: R10.2 Pelvic and perineal pain (principal)
CPT/HCPCS: 36415; 74176; 76830; 76856; 80053; 81001; 81025; 83605; 85025; 86140; 87109; 87491; 87591; 93976; 96365; 96375; 99284; J0696; J1885